=== PATIENT | female | born 1960 | race Caucasian/White ===

== ENCOUNTER → 2016-10-10 | Outpatient (CLI) | payer BC, OTHER ==
--- NOTE | 2016-10-11 10:16 | MY ---
EXAMINATION: Right digital diagnostic mammogram. HISTORY: Screening exam. Comparison is made to previous studies dated 05/02/2016, 04/10/2016, 04/05/20 16, 04/11/2011. FINDINGS: Right CC, MLO, and ML views obtained, spot magnification images obtained in the CC projec tion. Postsurgical changes are noted within the upper right breast. Vague grouped calcifications ar e noted posterior to the previous site of biopsy. These appear loosely grouped and faint with magni fication. These are only noted on the CC projection and not characterized on the ML or MLO views. Ov erall, they have a similar appearance to the previously biopsied calcifications. No worrisome masses identified. IMPRESSION: BI-RADS category III - probably benign. Persistent calcifications posterior to the [place] on of the previously benign biopsy calcifications. Followup in six months with a right breast diagn ostic study is recommended. THE FALSE-NEGATIVE RATE OF MAMMOGRAM IS APPROXIMATELY 10%. MANAGEMENT OF A PALPABLE ABNORMALITY MUST BE BASED UPON CLINICAL GROUNDS. SENSITIVITY FOR DETECTION OF ABNORMALITIES IN DENSE BREASTS IS LOW. NOTE: A letter will be sent to the patient regarding findings. [facility] -- [place]ACE [place] [phone] - FAX [phone]
== END ==
LOC: MW.MAM 09:04
PROVIDERS: ATTEND Surgery
DX: R92.8 Other abnormal and inconclusive findings on diagnostic imaging of breast (principal)
CPT/HCPCS: G0206-26-RT; G0206-RT